=== PATIENT | male | born 2000 | race African-American/Black ===

== ENCOUNTER 2024-12-12 21:10 | Emergency (ER) | payer MEDICAID | END 2024-12-12 23:20 | disposition home or self-care (01) | LOC: FB.ED 21:10 | DX: S49.91XA Unspecified injury of right shoulder and upper arm, initial encounter (principal); Z79.899 Other long term (current) drug therapy; W50.0XXA Accidental hit or strike by another person, initial encounter; Y93.89 Activity, other specified | CPT/HCPCS: 73030-RT; 99283; A9270-GY ==